=== PATIENT | female | born 1970 | race American Indian/Alaskan Native ===

== ENCOUNTER 2019-01-13 18:09 | Emergency (ER) | payer SELFPAY ==
[2019-01-13 18:54] VITALS: BP 129/75
--- NOTE | 2019-01-13 18:54 | Event Note ---
ED Screening Note Date of service: 01/13/19 Time: 18:53 ED Screening Note: Pt complains of sore throat and tongue pain x 3 weeks states exposure to strep This initial assessment/diagnostic orders/clinical plan/treatment(s) is/are subject to change based on patients health status, clinical progression and re- assessment by fellow clinical providers in the ED. Further treatment and workup at subsequent clinical providers discretion. Patient/guardian urged not to elope from the ED as their condition may be serious if not clinically assessed and managed. Initial orders include: rapid strep
[2019-01-13] MEDS ORDERED: IBUPROFEN 600 MG TAB PO ONE (22:01)
[2019-01-13] MEDS ORDERED: predniSONE 20 MG TAB PO ONE (22:01)
[2019-01-13] MEDS ORDERED: LIDOCAINE VISCOUS 2% 15 ML ORAL LIQD PO ONE (22:01)
--- NOTE | 2019-01-13 23:07 | Emergency Department Report ---
ED General Adult HPI - General Chief complaint: Sore Throat Stated complaint: SORE THROAT Time Seen by Provider: 01/13/19 18:51 Source: patient Mode of arrival: Ambulatory Limitations: No Limitations - History of Present Illness Initial comments: Patient is a 48-year-old -[place] female with no past medical history who presents to the ED with complaint of acute onset persistent severe sore throat persistent for the last 2 months worse in the last 2 days. Patient denies chest pain, shortness of breath, headache, dizziness, fever, chills, corin[place] sea, vomiting, diarrhea or change in vision and palpitations. MD Complaint: Sore throat -: Gradual, month(s) (2) Location: mouth Radiation: non-radiation Severity scale (0 -10): 4 Quality: burning, aching, sharp Consistency: constant Improves with: none Worsens with: none Associated Symptoms: denies other symptoms. denies: confusion, chest pain, c ough, diaphoresis, fever/chills, headaches, loss of appetite, malaise, nausea/vomiting, rash, seizure, shortness of breath, syncope, weakness, other Treatments Prior to Arrival: none - Related Data Previous Rx's Medication Instructions Recorded Last Taken Type Ibuprofen [Motrin] 800 mg PO Q8HR PRN #24 tablet 01/13/19 Unknown Rx Lidocaine Viscous 2% 10 ml PO Q6H PRN #120 ml 01/13/19 Unknown Rx Penicillin V Potassium 500 mg PO Q6H #40 tablet 01/13/19 Unknown Rx methylPREDNISolone [Medrol 4MG 4 mg PO DAILY #21 tab.ds.pk 01/13/19 Unknown Rx DOSEPAK (21 tabs)] Allergies Allergy/AdvReac Type Severity Reaction Status Date / Time No Known Allergies Allergy Unverified 01/13/19 18:24 ED Review of Systems ROS: Stated complaint: SORE THROAT Other details as noted in HPI Constitutional: denies: chills, fever Eyes: denies: eye pain, eye discharge, vision change ENT: throat pain. denies: ear pain Respiratory: denies: cough, shortness of breath, wheezing Cardiovascular: denies: chest pain, palpitations Endocrine: no symptoms reported Gastrointestinal: denies: abdominal pain, nausea, diarrhea Genitourinary: denies: urgency, dysuria, discharge Musculoskeletal: denies: back pain, joint swelling, arthralgia Skin: denies: rash, lesions Neurological: denies: headache, weakness, paresthesias Psychiatric: denies: anxiety, depression Hematological/Lymphatic: denies: easy bleeding, easy bruising ED Past Medical Hx - Past Medical History Previous Medical History?: No - Surgical History Past Surgical History?: No - Social History Smoking Status: Never Smoker Substance Use Type: Alcohol - Medications Home Medications: Home Medications Medication Instructions Recorded Confirmed Last Taken Type Ibuprofen [Motrin] 800 mg PO Q8HR PRN #24 tablet 01/13/19 Unknown Rx Lidocaine Viscous 2% 10 ml PO Q6H PRN #120 ml 01/13/19 Unknown Rx Penicillin V Potassium 500 mg PO Q6H #40 tablet 01/13/19 Unknown Rx methylPREDNISolone [Medrol 4MG 4 mg PO DAILY #21 tab.ds.pk 01/13/19 Unknown Rx DOSEPAK (21 tabs)] ED Physical Exam - General Limitations: No Limitations General appearance: alert, in no apparent distress - Head Head exam: Present: atraumatic, normocephalic, normal inspection - Eye Eye exam: Present: normal appearance, PERRL, EOMI Pupils: Present: normal accommodation - ENT ENT exam: Present: mucous membranes moist, TM's normal bilaterally, normal external ear exam, other (mildly erythematous oropharynx and tonsils) - Neck Neck exam: Present: normal inspection, full ROM, lymphadenopathy - Respiratory Respiratory exam: Present: normal lung sounds bilaterally. Absent: respiratory distress, wheezes, rales, rhonchi, chest wall tenderness, accessory muscle use, decreased breath sounds - Cardiovascular Cardiovascular Exam: Present: regular rate, normal rhythm, normal heart sounds. Absent: systolic murmur, diastolic murmur, rubs, gallop - GI/Abdominal GI/Abdominal exam: Present: soft, normal bowel sounds. Absent: tenderness, guarding, hyperactive bowel sounds, hypoactive bowel sounds, organomegaly - Extremities Exam Extremities exam: Present: normal inspection, full ROM, normal capillary refill - Back Exam Back exam: Present: normal inspection, full ROM. Absent: muscle spasm, paraspinal tenderness, vertebral tenderness - Neurological Exam Neurological exam: Present: alert, oriented X3, CN II-XII intact, normal gait, reflexes normal - Psychiatric Psychiatric exam: Present: normal affect, normal mood - Skin Skin exam: Present: warm, dry, intact, normal color. Absent: rash ED Course Vital Signs 01/13/19 18:52 Temperature 98.6 F Pulse Rate 88 Respiratory 17 Rate Blood Pressure 129/75 O2 Sat by Pulse 96 Oximetry ED Medical Decision Making - Medical Decision Making This is a 48-year-old female who presented to the ED with persistent sore throat for 2 months. In the ED, patient is alert and oriented 3 and is not in distress. Rapid strep test is negative. Patient was discharged home on medications up today for pain in the ED. Patient was advised to follow-up with her primary care physician in 7-10 days for reevaluation or return to the ED immediately if symptoms get worse. - Differential Diagnosis Strep pharyngitis; Tonsillitis; Viral pharyngitis; Lymphadenopathy Critical care attestation.: If time is entered above; I have spent that time in minutes in the direct care of this critically ill patient, excluding procedure time. ED Disposition Clinical Impression: Acute pharyngitis Qualifiers: Pharyngitis/tonsillitis etiology: unspecified etiology Qualified Code(s): J02.9 - Acute pharyngitis, unspecified Disposition: DC- TO HOME OR SELFCARE Is pt being admited?: No Does the pt Need Aspirin: No Condition: Stable Instructions: Pharyngitis (ED) Additional Instructions: Take medication with food, drink plenty fluids and follow-up with your primary care physician in 7-10 days for reevaluation. Return to the ED immediately if symptoms get worse. Prescriptions: Lidocaine Viscous 2% 10 ml PO Q6H PRN #120 ml PRN Reason: Pain , Severe (7-10) methylPREDNISolone [Medrol 4MG DOSEPAK (21 tabs)] 4 mg PO DAILY #21 tab.ds.pk Ibuprofen [Motrin] 800 mg PO Q8HR PRN #24 tablet PRN Reason: Pain , Severe (7-10) Penicillin V Potassium 500 mg PO Q6H #40 tablet Referrals: [facility] [Outside] - 3-5 Days Time of Disposition: 23:03 Print Language: PERSIAN
== END 2019-01-13 23:12 | disposition home or self-care (01) ==
LOC: ED 18:09
DX: J02.9 Acute pharyngitis, unspecified (principal)
CPT/HCPCS: 87116; 87430; J7512

== ENCOUNTER 2021-09-27 18:41 | Emergency (ER) | payer SELFPAY | END 2021-09-27 19:30 | disposition left against medical advice (07) | LOC: ED 18:41 | DX: Z00.00 Encounter for general adult medical examination without abnormal findings (principal); Z53.21 Procedure and treatment not carried out due to patient leaving prior to being seen by health care provider ==